=== PATIENT | female | born 1975 | race African-American/Black ===

== ENCOUNTER 2023-02-06 12:07 | Inpatient (IN) | payer OTHER ==
[2023-02-06 12:16] VITALS: BMI 32.9
[2023-02-06] MEDS ORDERED: morphine CARPU-JECT 4 MG/1 ML DISP.SYRIN IVPUSH ONE ×2 (13:16→15:29)
[2023-02-06] MEDS ORDERED: ACETAMINOPHEN 1000 MG/100 ML BAG IVPB ONE (13:16)
[2023-02-06] MEDS ORDERED: ONDANSETRON 4 MG/2 ML VIAL IVPUSH ONE (13:17)
[2023-02-06] MEDS ORDERED: levETIRAcetam 500 MG/5 ML INJECTION VIAL IVPB ONE ×3 (13:29→22:30)
[2023-02-06] MEDS ORDERED: SODIUM CHLORIDE 0.9% 500 ML INFUS.BAG IV ONE (13:33)
[2023-02-06] MEDS ORDERED: ONDANSETRON 4 MG/2 ML VIAL ONE (13:45)
[2023-02-06] MEDS ORDERED: morphine SULFATE 4 MG/ML VIAL ONE ×2 (13:45→15:44)
[2023-02-06] MEDS ORDERED: ACETAMINOPHEN INJECTION 100 ML IVPB ONE (13:45)
[2023-02-06 14:04] LABS: VENOUS BASE EXCESS 2.3 mmol/L (-2-2); VENOUS O2 SATURATION 87.5 % (70-80); VENOUS PCO2 45.2 mmHg (38-52); VENOUS PH 7.403 (7.310-7.410)
[2023-02-06 14:32] LABS: EOS % 1.5 % (0-4.5); HEMATOCRIT 38.9 % (32.4-45.2); HEMOGLOBIN 13.4 GM/dL (10.7-15.3); LYMPH % 19.2 % (8-40); MCH 31.4 pg (25.7-33.7); MCHC 34.5 g/dl (32.0-36.0); MEAN CELL VOLUME 90.9 fl (80-96); MEAN PLT VOLUME 8.7 fl (7.5-11.1); MONO % 6.1 % (3.8-10.2); NEUT % 72.2 % (42.8-82.8); PLATELET COUNT 325 10^3/uL (134-434); RBC 4.28 M/mm3 (3.60-5.2); RDW 14.6 % (11.6-15.6)
[2023-02-06 14:58] LABS: CHLORIDE 100 mmol/L (98-107); POTASSIUM 3.7 mmol/L (3.5-5.1); SODIUM 135 mmol/L (136-145)
[2023-02-06 15:01] LABS: ALBUMIN 3.7 g/dl (3.4-5.0); ANION GAP 5 MMOL/L (8-16); BLOOD UREA NITROGEN 6.1 mg/dL (7-18); CO2 29 mmol/L (21-32); GLUCOSE,RANDOM 103 mg/dL (74-106); LIPASE < 10 U/L (73-393)
[2023-02-06 15:04] LABS: CREATININE 0.8 mg/dL (0.55-1.3); SGOT/AST 9 U/L (15-37); SGPT/ALT 14 U/L (13-61)
[2023-02-06 15:05] LABS: ALK PHOS 113 U/L (45-117); BILIRUBIN,TOTAL 0.3 mg/dL (0.2-1); TOT PROT 8.1 g/dl (6.4-8.2)
[2023-02-06 15:07] LABS: N-TERMINAL BNP 9.4 pg/ml (5-125)
[2023-02-06] MEDS ORDERED: CEFTRIAXONE 1 GM in DEXTROSE 5%-WATER - 100 ML IVPB ONE (15:33)
[2023-02-06] MEDS ORDERED: CEFTRIAXONE 1 GM/50 ML BAG ONE (15:45)
[2023-02-06 15:55] LABS: EPI CELLS 6 /uL (0-25.1); HYALINE CASTS 0 /uL (0-3.1); URINE APPEARANCE CLEAR; URINE BACTERIA 2964 /uL (0-1359); URINE BILIRUBIN NEGATIVE (NEGATIVE); URINE COLOR YELLOW; URINE GLUCOSE (UA) NEGATIVE (NEGATIVE); URINE KETONE NEGATIVE (NEGATIVE); URINE LEUK ESTERASE 2+ (NEGATIVE); URINE NITRITE NEGATIVE (NEGATIVE); URINE PROTEIN NEGATIVE (NEGATIVE); URINE RBC 14 /uL (0-23.9); URINE UROBILINOGEN 0.2 mg/dL (0.2-1.0); URINE WBC 125 /uL (0-25.8)
[2023-02-06 18:33] LABS: LDH 139 U/L (84-246)
[2023-02-06] MEDS ORDERED: DOCUSATE SODIUM 100 MG CAPSULE (FP) PO PRN (19:57)
[2023-02-06] MEDS ORDERED: SODIUM CHLORIDE 500 ML IV STA (22:13)
[2023-02-06] MEDS: HYDROmorphone HCl 2 MG/ML VIAL IVPB PRN (22:55)
[2023-02-07] MEDS: SODIUM CHLORIDE 1,000 ML IV SCH (00:15)
[2023-02-07] MEDS ORDERED: lamoTRIgine 100 MG TABLET PO ONE ×2 (00:30→16:00)
[2023-02-07] MEDS ORDERED: GABAPENTIN 300 MG CAPSULE PO SCH (00:30)
[2023-02-07] MEDS: GABAPENTIN 300 MG CAPSULE PO SCH ×4 (00:57→21:26)
[2023-02-07] MEDS: ALPRAZolam 1 MG TABLET PO PRN ×2 (00:57→21:26)
[2023-02-07] MEDS ORDERED: TRIMETHOBENZAMIDE HCL 200MG/2ML INJ IM PRN (02:32)
[2023-02-07] MEDS: HYDROmorphone HCl 2 MG/ML VIAL IVPB PRN ×2 (03:18→08:42)
[2023-02-07] MEDS ORDERED: HYDROXYUREA 500 MG CAPSULE PO ONE ×2 (07:00→22:22)
[2023-02-07] MEDS: FERROUS SO4 325 MG TABLET (FP) PO SCH (09:56)
[2023-02-07] MEDS: TOPIRAMATE 100 MG TABLET PO SCH (09:56)
[2023-02-07] MEDS ORDERED: ALBUTEROL SO4 0.083% IH SOL 2.5 MG/3 ML VIAL.NEB. NEB PRN (10:29)
[2023-02-07 11:01] LABS: INR 1.11 (0.83-1.09); PROTHROMBIN TIME (PATIENT) 12.9 SEC (9.7-13.0)
[2023-02-07 11:04] LABS: ACTIVATED PTT 30.4 SECONDS (25.2-36.5); BASO % 0.5 % (0-2.0); HEMATOCRIT 32.4 % (32.4-45.2); HEMOGLOBIN 11.3 GM/dL (10.7-15.3); LYMPH % 29.2 % (8-40); MEAN CELL VOLUME 91.2 fl (80-96); MEAN PLT VOLUME 8.2 fl (7.5-11.1); MONO % 5.7 % (3.8-10.2); NEUT % 61.6 % (42.8-82.8); PLATELET COUNT 289 10^3/uL (134-434); RBC 3.55 M/mm3 (3.60-5.2); RDW 14.4 % (11.6-15.6); WHITE BLOOD COUNT 8.8 K/mm3 (4.0-10.0)
[2023-02-07 11:26] LABS: POTASSIUM 3.8 mmol/L (3.5-5.1)
[2023-02-07 11:34] LABS: BLOOD UREA NITROGEN 5.8 mg/dL (7-18); CALCIUM 8.2 mg/dL (8.5-10.1); MAGNESIUM 2.1 mg/dL (1.8-2.4)
[2023-02-07 11:37] LABS: CREATININE 0.7 mg/dL (0.55-1.3); PHOSPHOROUS 3.6 mg/dL (2.5-4.9)
[2023-02-07] MEDS: HYDROmorphone HCl 2 MG/ML VIAL IVPUSH PRN ×2 (12:19→17:33)
[2023-02-07] MEDS: CEFTRIAXONE 1 GM in DEXTROSE 5%-WATER - 50 ML IVPB SCH (12:19)
[2023-02-07] MEDS: POLYETHYLENE GLYCOL (HEALTHYLAX) 3350 17 GM PACKET PO SCH (12:20)
[2023-02-07] MEDS: methylPREDNISolone NA SUCC 40 MG/1 ML VIAL IVPUSH SCH ×2 (15:32→18:19)
[2023-02-07] MEDS: BUDESONIDE/FORMETEROL FUMARATE 160/4.5 mcg INHALER IH SCH ×2 (15:35→22:21)
[2023-02-07] MEDS: NICOTINE 14 MG/24 HOURS TOPICAL PATCH TD SCH (15:36)
[2023-02-07] MEDS: ALBUTEROL SO4 2.5/IPRATROPIUM 0.5 INH SOL 3 ML VIAL.NEB. NEB SCH ×2 (16:30→20:45)
[2023-02-07] MEDS: VANCOMYCIN PREMIX 1.5 GM 1,500 MG/300 ML BAG IVPB ONE ×2 (22:25→22:53)
[2023-02-08] MEDS: methylPREDNISolone NA SUCC 40 MG/1 ML VIAL IVPUSH SCH ×3 (01:11→17:51)
[2023-02-08] MEDS: HYDROmorphone HCl 2 MG/ML VIAL IVPUSH PRN ×4 (04:15→22:24)
[2023-02-08] MEDS: GABAPENTIN 300 MG CAPSULE PO SCH ×3 (05:21→21:42)
[2023-02-08] MEDS: SODIUM CHLORIDE 1,000 ML IV SCH ×3 (05:21→16:59)
[2023-02-08] MEDS: ALBUTEROL SO4 2.5/IPRATROPIUM 0.5 INH SOL 3 ML VIAL.NEB. NEB SCH ×4 (08:20→19:17)
[2023-02-08] MEDS: FERROUS SO4 325 MG TABLET (FP) PO SCH (09:09)
[2023-02-08] MEDS: TOPIRAMATE 100 MG TABLET PO SCH (09:10)
[2023-02-08] MEDS: CEFTRIAXONE 1 GM in DEXTROSE 5%-WATER - 50 ML IVPB SCH (09:10)
[2023-02-08] MEDS: NICOTINE 14 MG/24 HOURS TOPICAL PATCH TD SCH (09:10)
[2023-02-08] MEDS: BUDESONIDE/FORMETEROL FUMARATE 160/4.5 mcg INHALER IH SCH ×2 (09:11→21:42)
[2023-02-08] MEDS ORDERED: HYDROmorphone HCl 2 MG/ML VIAL IVPB ONE (09:45)
[2023-02-08] MEDS ORDERED: lamoTRIgine 100 MG TABLET PO SCH ×2 (10:00→19:18)
[2023-02-08] MEDS: POLYETHYLENE GLYCOL (HEALTHYLAX) 3350 17 GM PACKET PO SCH (10:26)
[2023-02-08] MEDS: levETIRAcetam 500 MG/5 ML INJECTION VIAL IVPB SCH ×2 (10:27→21:42)
[2023-02-08] MEDS ORDERED: HYDROXYUREA 500 MG CAPSULE PO SCH (10:30)
[2023-02-08] MEDS: LAMOTRIGINE 100 MG, LAMOTRIGINE 50 MG PO SCH (19:55)
[2023-02-08] MEDS: ALPRAZolam 1 MG TABLET PO PRN (21:41)
[2023-02-09] MEDS: SODIUM CHLORIDE 1,000 ML IV SCH ×2 (01:00→14:38)
[2023-02-09] MEDS: methylPREDNISolone NA SUCC 40 MG/1 ML VIAL IVPUSH SCH ×3 (02:22→17:16)
[2023-02-09] MEDS: GABAPENTIN 300 MG CAPSULE PO SCH ×3 (06:17→21:48)
[2023-02-09] MEDS: HYDROmorphone HCl 2 MG/ML VIAL IVPUSH PRN ×2 (06:18→12:31)
[2023-02-09] MEDS: LAMOTRIGINE 100 MG, LAMOTRIGINE 50 MG PO SCH ×2 (06:43→19:07)
[2023-02-09] MEDS: ALBUTEROL SO4 2.5/IPRATROPIUM 0.5 INH SOL 3 ML VIAL.NEB. NEB SCH ×4 (07:40→19:54)
[2023-02-09] MEDS: FERROUS SO4 325 MG TABLET (FP) PO SCH (11:11)
[2023-02-09] MEDS: POLYETHYLENE GLYCOL (HEALTHYLAX) 3350 17 GM PACKET PO SCH (11:11)
[2023-02-09] MEDS: TOPIRAMATE 100 MG TABLET PO SCH (11:12)
[2023-02-09] MEDS: levETIRAcetam 500 MG/5 ML INJECTION VIAL IVPB SCH ×2 (11:12→21:49)
[2023-02-09] MEDS: BUDESONIDE/FORMETEROL FUMARATE 160/4.5 mcg INHALER IH SCH ×2 (11:16→21:49)
[2023-02-09] MEDS: NICOTINE 14 MG/24 HOURS TOPICAL PATCH TD SCH ×2 (11:17→11:44)
[2023-02-09] MEDS: CEFTRIAXONE 1 GM in DEXTROSE 5%-WATER - 50 ML IVPB SCH (11:43)
[2023-02-09] MEDS: busPIRone HCL 5 MG TABLET PO SCH ×2 (14:07→21:49)
[2023-02-09] MEDS: HYDROmorphone HCl 2 MG/ML VIAL IVPB PRN (19:03)
[2023-02-09] MEDS: ALPRAZolam 1 MG TABLET PO PRN (21:49)
[2023-02-09] MEDS: QUEtiapine FUMARATE 25 MG TABLET PO SCH (21:49)
[2023-02-10] MEDS: methylPREDNISolone NA SUCC 40 MG/1 ML VIAL IVPUSH SCH ×2 (01:31→09:24)
[2023-02-10] MEDS: HYDROmorphone HCl 2 MG/ML VIAL IVPB PRN ×2 (01:31→08:26)
[2023-02-10] MEDS: SODIUM CHLORIDE 1,000 ML IV SCH ×2 (03:32→22:07)
[2023-02-10] MEDS: GABAPENTIN 300 MG CAPSULE PO SCH ×3 (05:35→21:48)
[2023-02-10] MEDS: LAMOTRIGINE 100 MG, LAMOTRIGINE 50 MG PO SCH ×2 (06:29→18:17)
[2023-02-10] MEDS: ALBUTEROL SO4 2.5/IPRATROPIUM 0.5 INH SOL 3 ML VIAL.NEB. NEB SCH ×4 (07:40→19:42)
[2023-02-10 09:14] LABS: HEMATOCRIT 35.6 % (32.4-45.2); HEMOGLOBIN 11.8 GM/dL (10.7-15.3); MCHC 33.2 g/dl (32.0-36.0); MEAN CELL VOLUME 93.4 fl (80-96); MEAN PLT VOLUME 8.6 fl (7.5-11.1); PLATELET COUNT 337 10^3/uL (134-434); RBC 3.81 M/mm3 (3.60-5.2); RDW 14.6 % (11.6-15.6); WHITE BLOOD COUNT 11.6 K/mm3 (4.0-10.0)
[2023-02-10] MEDS: TOPIRAMATE 100 MG TABLET PO SCH (09:24)
[2023-02-10] MEDS: BUDESONIDE/FORMETEROL FUMARATE 160/4.5 mcg INHALER IH SCH ×2 (09:25→21:49)
[2023-02-10] MEDS: NICOTINE 14 MG/24 HOURS TOPICAL PATCH TD SCH (09:26)
[2023-02-10] MEDS: busPIRone HCL 5 MG TABLET PO SCH ×2 (09:26→21:47)
[2023-02-10] MEDS: FERROUS SO4 325 MG TABLET (FP) PO SCH (09:26)
[2023-02-10] MEDS: CEFTRIAXONE 1 GM in DEXTROSE 5%-WATER - 50 ML IVPB SCH (09:26)
[2023-02-10] MEDS: levETIRAcetam 500 MG/5 ML INJECTION VIAL IVPB SCH ×2 (09:27→21:47)
[2023-02-10] MEDS: POLYETHYLENE GLYCOL (HEALTHYLAX) 3350 17 GM PACKET PO SCH (09:28)
[2023-02-10 09:32] LABS: POTASSIUM 4.2 mmol/L (3.5-5.1)
[2023-02-10 09:37] LABS: ALBUMIN 3.7 g/dl (3.4-5.0); CALCIUM 9.3 mg/dL (8.5-10.1)
[2023-02-10 09:38] LABS: BLOOD UREA NITROGEN 11.7 mg/dL (7-18)
[2023-02-10 09:42] LABS: BILIRUBIN,TOTAL 0.3 mg/dL (0.2-1); TOT PROT 7.8 g/dl (6.4-8.2)
[2023-02-10] MEDS: traMADol HCL 50 MG TABLET PO PRN ×2 (14:46→21:48)
[2023-02-10 15:38] VITALS: RESP 18
[2023-02-10] MEDS: QUEtiapine FUMARATE 25 MG TABLET PO SCH (21:48)
[2023-02-10] MEDS: ALPRAZolam 1 MG TABLET PO PRN (21:48)
[2023-02-11] MEDS: SODIUM CHLORIDE 1,000 ML IV SCH ×2 (03:05→06:52)
[2023-02-11] MEDS: traMADol HCL 50 MG TABLET PO PRN ×2 (05:30→09:57)
[2023-02-11] MEDS: GABAPENTIN 300 MG CAPSULE PO SCH (05:30)
[2023-02-11 05:50] VITALS: TEMP 97.9
[2023-02-11] MEDS: LAMOTRIGINE 100 MG, LAMOTRIGINE 50 MG PO SCH (06:49)
[2023-02-11] MEDS: ALBUTEROL SO4 2.5/IPRATROPIUM 0.5 INH SOL 3 ML VIAL.NEB. NEB SCH ×2 (08:25→11:35)
[2023-02-11] MEDS: TOPIRAMATE 100 MG TABLET PO SCH (09:57)
[2023-02-11] MEDS: busPIRone HCL 5 MG TABLET PO SCH (09:58)
[2023-02-11] MEDS: POLYETHYLENE GLYCOL (HEALTHYLAX) 3350 17 GM PACKET PO SCH (09:58)
[2023-02-11] MEDS: FERROUS SO4 325 MG TABLET (FP) PO SCH (09:58)
[2023-02-11] MEDS: levETIRAcetam 500 MG/5 ML INJECTION VIAL IVPB SCH (09:59)
[2023-02-11] MEDS: NICOTINE 14 MG/24 HOURS TOPICAL PATCH TD SCH (09:59)
[2023-02-11] MEDS: BUDESONIDE/FORMETEROL FUMARATE 160/4.5 mcg INHALER IH SCH (09:59)
[2023-02-11] MEDS ORDERED: predniSONE 20 MG TABLET (UD) PO SCH (10:00)
[2023-02-11] MEDS ORDERED: CEFPODOXIME PROXETIL 100 MG TABLET PO SCH (10:00)
[2023-02-11 10:08] VITALS: BP 119/82; PULSE 108
== END 2023-02-11 14:03 | disposition home or self-care (01) | DRG 662 ==
LOC: JER 12:07 → JERBED 19:17 → J8W 21:29 → OBSVTOIN 02-08 15:59
PROVIDERS: ADMIT Internal Medicine; ATTEND Family Medicine
DX: D57.00 Hb-SS disease with crisis, unspecified (principal); N39.0 Urinary tract infection, site not specified; R11.2 Nausea with vomiting, unspecified; J45.901 Unspecified asthma with (acute) exacerbation; G43.909 Migraine, unspecified, not intractable, without status migrainosus; G47.00 Insomnia, unspecified; G89.29 Other chronic pain; J06.9 Acute upper respiratory infection, unspecified; F17.200 Nicotine dependence, unspecified, uncomplicated; E87.1 Hypo-osmolality and hyponatremia; R50.9 Fever, unspecified; G25.81 Restless legs syndrome; F41.8 Other specified anxiety disorders
CPT/HCPCS: 0241U-QW; 36415; 70551-TC; 71045-TC-FY; 76705-TC; 80048; 80053; 81003; 82803; 83605; 83615; 83690; 83735; 83880; 84100; 84484; 84702; 85025; 85027; 85610; 85730; 86850; 86900; 86901; 87040; 87086; 87186; 93005; 93010; 94640; 97116-GP; 97161-GP; 99285-25; G0378; J8999

== ENCOUNTER 2023-03-07 11:22 | Inpatient (IN) | payer OTHER ==
[2023-03-07] MEDS ORDERED: ONDANSETRON 4 MG/2 ML VIAL IVPUSH ONE (12:17)
[2023-03-07] MEDS ORDERED: LACTATED RINGERS SOLUTION 1000 ML INFUS.BAG IV ONE (12:17)
[2023-03-07] MEDS ORDERED: MAG HYDROX/AL HYDROX/SIMETH 30 ML UNIT-DOSE CUP PO ONE (12:17)
[2023-03-07] MEDS ORDERED: FAMOTIDINE 20 MG/50 ML IVPB 20 MG/50 ML MG IVPB ONE (12:17)
[2023-03-07] MEDS ORDERED: SUCRALFATE 1 GM TABLET (FP) PO ONE (12:19)
[2023-03-07] MEDS ORDERED: MAG HYDROX/AL HYDROX/SIMETH 30 ML UNIT-DOSE CUP ONE (13:19)
[2023-03-07] MEDS ORDERED: ONDANSETRON 4 MG/2 ML VIAL ONE ×2 (13:19→13:56)
[2023-03-07] MEDS ORDERED: FAMOTIDINE 10 MG/ML VIAL IVPB ONE (13:20)
[2023-03-07 13:21] LABS: EPI CELLS >36 /uL (0-25.1); HYALINE CASTS 1 /uL (0-3.1); PH,URINE 5.5 (5.0-8.0); URINE APPEARANCE CLOUDY; URINE BACTERIA 172 /uL (0-1359); URINE BILIRUBIN NEGATIVE (NEGATIVE); URINE COLOR YELLOW; URINE GLUCOSE (UA) NEGATIVE (NEGATIVE); URINE KETONE TRACE (NEGATIVE); URINE LEUK ESTERASE 2+ (NEGATIVE); URINE NITRITE NEGATIVE (NEGATIVE); URINE PROTEIN NEGATIVE (NEGATIVE); URINE UROBILINOGEN 0.2 mg/dL (0.2-1.0); URINE WBC 97 /uL (0-25.8)
[2023-03-07] MEDS ORDERED: SUCRALFATE 1 GM TABLET (FP) ONE (13:22)
[2023-03-07 13:31] LABS: POTASSIUM 4.4 mmol/L (3.5-5.1)
[2023-03-07 13:33] LABS: CALCIUM 9.7 mg/dL (8.5-10.1)
[2023-03-07 13:35] LABS: ALBUMIN 3.9 g/dl (3.4-5.0); BLOOD UREA NITROGEN 11.3 mg/dL (7-18)
[2023-03-07 13:37] LABS: CREATININE 0.8 mg/dL (0.55-1.3)
[2023-03-07 13:39] LABS: BILIRUBIN,TOTAL 0.5 mg/dL (0.2-1); TOT PROT 8.4 g/dl (6.4-8.2)
[2023-03-07] MEDS ORDERED: ACETAMINOPHEN 1000 MG/100 ML BAG IVPB ONE (14:09)
[2023-03-07] MEDS ORDERED: ACETAMINOPHEN INJECTION 100 ML IVPB ONE (14:12)
[2023-03-07 14:53] LABS: BASO % 0.7 % (0-2.0); HEMATOCRIT 39.5 % (32.4-45.2); HEMOGLOBIN 13.1 GM/dL (10.7-15.3); LYMPH % 20.9 % (8-40); MCH 30.9 pg (25.7-33.7); MCHC 33.2 g/dl (32.0-36.0); MEAN CELL VOLUME 93.1 fl (80-96); MEAN PLT VOLUME 8.5 fl (7.5-11.1); MONO % 6.7 % (3.8-10.2); NEUT % 70.7 % (42.8-82.8); PLATELET COUNT 411 10^3/uL (134-434); RBC 4.24 M/mm3 (3.60-5.2); RDW 15.7 % (11.6-15.6); RETICULOCYTES 1.85 % (0.5-1.5); WHITE BLOOD COUNT 9.5 K/mm3 (4.0-10.0)
[2023-03-07] MEDS ORDERED: CEFTRIAXONE 1 GM/50 ML BAG ONE (14:53)
[2023-03-07] MEDS ORDERED: morphine SULFATE 4 MG/ML VIAL IVPUSH ONE (15:17)
[2023-03-07] MEDS ORDERED: morphine SULFATE 4 MG/ML VIAL ONE ×2 (15:25→18:19)
[2023-03-07] MEDS ORDERED: METOCLOPRAMIDE HCL INJECTION 10 MG/2 ML VIAL IVPB ONE (17:07)
[2023-03-07] MEDS ORDERED: METOCLOPRAMIDE HCL INJECTION 10 MG/2 ML VIAL ONE (17:50)
[2023-03-07] MEDS ORDERED: morphine CARPU-JECT 4 MG/1 ML DISP.SYRIN IVPUSH ONE (18:05)
[2023-03-07] MEDS ORDERED: ACETAMINOPHEN 1000 MG/100 ML BAG IVPB PRN ×2 (20:38→22:47)
[2023-03-07] MEDS ORDERED: SODIUM CHLORIDE 1,000 ML IV SCH (20:45)
[2023-03-07] MEDS ORDERED: QUEtiapine FUMARATE 25 MG TABLET ONE (21:15)
[2023-03-07] MEDS ORDERED: levETIRAcetam 500 MG TABLET (FP) PO ONE (21:15)
[2023-03-07] MEDS ORDERED: HEPARIN NA (PORCINE) 5,000 UNITS/ML 1ML VIAL ONE (21:16)
[2023-03-07] MEDS: HEPARIN NA (PORCINE) 5,000 UNITS/ML 1ML VIAL SQ SCH (21:33)
[2023-03-07] MEDS: QUEtiapine FUMARATE 25 MG TABLET PO SCH (21:33)
[2023-03-07] MEDS: levETIRAcetam 500 MG TABLET (FP) PO SCH (22:02)
[2023-03-07] MEDS ORDERED: lamoTRIgine 25 MG TABLET PO SCH (22:45)
[2023-03-07] MEDS: DEXTROSE 5%-0.45% SALINE 1,000 ML IV SCH (23:08)
[2023-03-07] MEDS ORDERED: levETIRAcetam 500 MG/5 ML INJECTION VIAL IVPB ONE ×2 (23:38→23:39)
[2023-03-08] MEDS ORDERED: morphine SULFATE 4 MG/ML VIAL ONE ×4 (06:25→17:26)
[2023-03-08 08:59] LABS: BASO % 1.8 % (0-2.0); EOS % 2.9 % (0-4.5); HEMATOCRIT 34.5 % (32.4-45.2); HEMOGLOBIN 11.6 GM/dL (10.7-15.3); MCH 30.9 pg (25.7-33.7); MCHC 33.5 g/dl (32.0-36.0); MEAN CELL VOLUME 92.2 fl (80-96); MEAN PLT VOLUME 8.9 fl (7.5-11.1); NEUT % 54.3 % (42.8-82.8); PLATELET COUNT 336 10^3/uL (134-434); RBC 3.74 M/mm3 (3.60-5.2); RDW 15.6 % (11.6-15.6); WHITE BLOOD COUNT 6.9 K/mm3 (4.0-10.0)
[2023-03-08 09:41] LABS: POTASSIUM 3.5 mmol/L (3.5-5.1)
[2023-03-08 09:50] LABS: BLOOD UREA NITROGEN 9.8 mg/dL (7-18); CALCIUM 8.6 mg/dL (8.5-10.1)
[2023-03-08 09:51] LABS: ALBUMIN 3.3 g/dl (3.4-5.0)
[2023-03-08 09:54] LABS: CREATININE 0.7 mg/dL (0.55-1.3)
[2023-03-08 09:56] LABS: BILIRUBIN,TOTAL 0.5 mg/dL (0.2-1); TOT PROT 6.6 g/dl (6.4-8.2)
[2023-03-08] MEDS ORDERED: CEFTRIAXONE 1 GM in DEXTROSE 5%-WATER - 50 ML IVPB SCH (10:00)
[2023-03-08] MEDS ORDERED: HYDROXYUREA 500 MG CAPSULE PO SCH (10:00)
[2023-03-08] MEDS ORDERED: PATIENT'S OWN MEDICATION (NON-FORMULARY) (Lamotrigine [Lamictal] 150 MG Tablet) PO SCH (10:30)
[2023-03-08] MEDS ORDERED: morphine CARPU-JECT 4 MG/1 ML DISP.SYRIN IVPUSH PRN (10:31)
[2023-03-08] MEDS ORDERED: ALPRAZolam 1 MG TABLET ONE (10:31)
[2023-03-08] MEDS ORDERED: lamoTRIgine 100 MG TABLET ONE (10:32)
[2023-03-08] MEDS ORDERED: lamoTRIgine 25 MG TABLET ONE (10:32)
[2023-03-08] MEDS ORDERED: PANTOPRAZOLE 40 MG TABLET PO ONE (10:33)
[2023-03-08] MEDS ORDERED: METOCLOPRAMIDE HCL INJECTION 10 MG/2 ML VIAL ONE (10:33)
[2023-03-08] MEDS: LAMOTRIGINE 100 MG, LAMOTRIGINE 50 MG PO SCH (11:07)
[2023-03-08] MEDS: HEPARIN NA (PORCINE) 5,000 UNITS/ML 1ML VIAL SQ SCH ×2 (11:07→21:38)
[2023-03-08] MEDS: PANTOPRAZOLE 40 MG TABLET PO SCH (11:07)
[2023-03-08] MEDS: ALPRAZolam 1 MG TABLET PO SCH (11:08)
[2023-03-08] MEDS ORDERED: CEFTRIAXONE 1 GM/50 ML BAG ONE (11:12)
[2023-03-08] MEDS: FERROUS SO4 325 MG TABLET (FP) PO SCH (11:12)
[2023-03-08] MEDS: BUDESONIDE/FORMETEROL FUMARATE 160/4.5 mcg INHALER IH SCH ×2 (11:27→22:54)
[2023-03-08] MEDS: METOCLOPRAMIDE HCL INJECTION 10 MG/2 ML VIAL IVPUSH PRN (13:09)
[2023-03-08] MEDS: levETIRAcetam 500 MG TABLET (FP) PO SCH (13:10)
[2023-03-08] MEDS: morphine SULFATE 4 MG/ML VIAL IVPUSH PRN ×2 (14:07→17:35)
[2023-03-08] MEDS: GABAPENTIN 300 MG CAPSULE PO SCH ×2 (14:08→21:37)
[2023-03-08 18:09] VITALS: BMI 34.5
[2023-03-08] MEDS: HYDROmorphone HCl 2 MG/ML VIAL IVPB PRN (20:53)
[2023-03-08] MEDS: FOLIC ACID 1 MG TABLET (FP) PO SCH (21:38)
[2023-03-08] MEDS: QUEtiapine FUMARATE 25 MG TABLET PO SCH (21:38)
[2023-03-08] MEDS: busPIRone HCL 5 MG TABLET PO SCH (21:38)
[2023-03-08] MEDS: levETIRAcetam 500 MG/5 ML INJECTION VIAL IVPB SCH (21:39)
[2023-03-09] MEDS: DEXTROSE 5%-0.45% SALINE 1,000 ML IV SCH ×3 (01:29→22:09)
[2023-03-09] MEDS: HYDROmorphone HCl 2 MG/ML VIAL IVPB PRN ×3 (04:56→23:18)
[2023-03-09] MEDS: GABAPENTIN 300 MG CAPSULE PO SCH ×3 (05:55→21:25)
[2023-03-09] MEDS: METOCLOPRAMIDE HCL INJECTION 10 MG/2 ML VIAL IVPUSH PRN ×2 (09:43→18:03)
[2023-03-09] MEDS: levETIRAcetam 500 MG/5 ML INJECTION VIAL IVPB SCH ×2 (09:55→21:25)
[2023-03-09] MEDS: FERROUS SO4 325 MG TABLET (FP) PO SCH (10:00)
[2023-03-09] MEDS: FOLIC ACID 1 MG TABLET (FP) PO SCH (10:00)
[2023-03-09] MEDS: PANTOPRAZOLE 40 MG TABLET PO SCH (10:00)
[2023-03-09] MEDS: LAMOTRIGINE 100 MG, LAMOTRIGINE 50 MG PO SCH (10:00)
[2023-03-09] MEDS: busPIRone HCL 5 MG TABLET PO SCH ×2 (10:00→21:25)
[2023-03-09] MEDS: ALPRAZolam 1 MG TABLET PO SCH (10:00)
[2023-03-09] MEDS: BUDESONIDE/FORMETEROL FUMARATE 160/4.5 mcg INHALER IH SCH ×2 (10:01→21:26)
[2023-03-09] MEDS: HEPARIN NA (PORCINE) 5,000 UNITS/ML 1ML VIAL SQ SCH ×2 (10:01→21:26)
[2023-03-09 10:03] LABS: EOS % 2.8 % (0-4.5); HEMATOCRIT 34.7 % (32.4-45.2); HEMOGLOBIN 11.4 GM/dL (10.7-15.3); LYMPH % 34.4 % (8-40); MCH 30.7 pg (25.7-33.7); MCHC 32.8 g/dl (32.0-36.0); MEAN CELL VOLUME 93.4 fl (80-96); MEAN PLT VOLUME 8.6 fl (7.5-11.1); MONO % 8.9 % (3.8-10.2); NEUT % 52.9 % (42.8-82.8); PLATELET COUNT 329 10^3/uL (134-434); RBC 3.71 M/mm3 (3.60-5.2); RDW 15.6 % (11.6-15.6); RETICULOCYTES 1.43 % (0.5-1.5); WHITE BLOOD COUNT 7.7 K/mm3 (4.0-10.0)
[2023-03-09 10:16] LABS: POTASSIUM 3.5 mmol/L (3.5-5.1)
[2023-03-09 10:28] LABS: ALBUMIN 3.4 g/dl (3.4-5.0); BLOOD UREA NITROGEN 6.1 mg/dL (7-18)
[2023-03-09 10:31] LABS: CREATININE 0.7 mg/dL (0.55-1.3)
[2023-03-09 10:33] LABS: BILIRUBIN,TOTAL 0.5 mg/dL (0.2-1); TOT PROT 6.7 g/dl (6.4-8.2)
[2023-03-09] MEDS: morphine SULFATE 4 MG/ML VIAL IVPUSH PRN ×2 (11:33→18:03)
[2023-03-09] MEDS: QUEtiapine FUMARATE 25 MG TABLET PO SCH (21:25)
[2023-03-10] MEDS: morphine SULFATE 4 MG/ML VIAL IVPUSH PRN ×2 (03:14→14:39)
[2023-03-10] MEDS: GABAPENTIN 300 MG CAPSULE PO SCH ×3 (05:50→21:28)
[2023-03-10 06:14] VITALS: RESP 18
[2023-03-10] MEDS: METOCLOPRAMIDE HCL INJECTION 10 MG/2 ML VIAL IVPUSH PRN (07:45)
[2023-03-10] MEDS: HYDROmorphone HCl 2 MG/ML VIAL IVPB PRN ×2 (09:20→18:41)
[2023-03-10 09:24] LABS: BASO % 1.1 % (0-2.0); EOS % 1.7 % (0-4.5); HEMATOCRIT 34.1 % (32.4-45.2); LYMPH % 19.1 % (8-40); MCH 30.1 pg (25.7-33.7); MCHC 32.3 g/dl (32.0-36.0); MEAN CELL VOLUME 93.2 fl (80-96); MEAN PLT VOLUME 8.3 fl (7.5-11.1); MONO % 6.6 % (3.8-10.2); NEUT % 71.5 % (42.8-82.8); PLATELET COUNT 325 10^3/uL (134-434); RBC 3.66 M/mm3 (3.60-5.2); RDW 15.8 % (11.6-15.6)
[2023-03-10] MEDS: levETIRAcetam 500 MG/5 ML INJECTION VIAL IVPB SCH ×2 (09:34→21:30)
[2023-03-10] MEDS: ALPRAZolam 1 MG TABLET PO SCH (09:34)
[2023-03-10] MEDS: LAMOTRIGINE 100 MG, LAMOTRIGINE 50 MG PO SCH (09:35)
[2023-03-10] MEDS: FERROUS SO4 325 MG TABLET (FP) PO SCH (09:35)
[2023-03-10] MEDS: PANTOPRAZOLE 40 MG TABLET PO SCH (09:35)
[2023-03-10] MEDS: busPIRone HCL 5 MG TABLET PO SCH ×2 (09:35→21:30)
[2023-03-10] MEDS: FOLIC ACID 1 MG TABLET (FP) PO SCH (09:35)
[2023-03-10] MEDS: BUDESONIDE/FORMETEROL FUMARATE 160/4.5 mcg INHALER IH SCH ×2 (09:38→21:34)
[2023-03-10 09:41] LABS: POTASSIUM 3.3 mmol/L (3.5-5.1)
[2023-03-10 09:44] LABS: BLOOD UREA NITROGEN 4.3 mg/dL (7-18); MAGNESIUM 2.1 mg/dL (1.8-2.4)
[2023-03-10 09:47] LABS: CREATININE 0.9 mg/dL (0.55-1.3); PHOSPHOROUS 2.2 mg/dL (2.5-4.9)
[2023-03-10 09:48] LABS: BILIRUBIN,TOTAL 0.4 mg/dL (0.2-1); TOT PROT 6.2 g/dl (6.4-8.2)
[2023-03-10] MEDS: HEPARIN NA (PORCINE) 5,000 UNITS/ML 1ML VIAL SQ SCH ×2 (09:56→21:29)
[2023-03-10] MEDS ORDERED: POTASSIUM CHLORIDE TABS 20 MEQ TABLET.ER (FP) PO ONE (18:00)
[2023-03-10] MEDS: QUEtiapine FUMARATE 25 MG TABLET PO SCH (21:30)
[2023-03-10] MEDS: DEXTROSE 5%-0.45% SALINE 1,000 ML IV SCH (22:40)
[2023-03-11] MEDS: HYDROmorphone HCl 2 MG/ML VIAL IVPB PRN ×2 (02:09→09:34)
[2023-03-11] MEDS: morphine SULFATE 4 MG/ML VIAL IVPUSH PRN ×2 (05:38→12:38)
[2023-03-11] MEDS: GABAPENTIN 300 MG CAPSULE PO SCH ×3 (05:44→21:28)
[2023-03-11] MEDS: PANTOPRAZOLE 40 MG TABLET PO SCH (10:26)
[2023-03-11] MEDS: FOLIC ACID 1 MG TABLET (FP) PO SCH (10:26)
[2023-03-11] MEDS: busPIRone HCL 5 MG TABLET PO SCH ×2 (10:26→21:28)
[2023-03-11] MEDS: ALPRAZolam 1 MG TABLET PO SCH (10:26)
[2023-03-11] MEDS: FERROUS SO4 325 MG TABLET (FP) PO SCH (10:26)
[2023-03-11] MEDS: levETIRAcetam 500 MG/5 ML INJECTION VIAL IVPB SCH (10:26)
[2023-03-11] MEDS: METOCLOPRAMIDE HCL INJECTION 10 MG/2 ML VIAL IVPUSH PRN (10:28)
[2023-03-11] MEDS: HEPARIN NA (PORCINE) 5,000 UNITS/ML 1ML VIAL SQ SCH ×2 (10:28→21:28)
[2023-03-11] MEDS: BUDESONIDE/FORMETEROL FUMARATE 160/4.5 mcg INHALER IH SCH ×2 (10:31→21:29)
[2023-03-11] MEDS: LAMOTRIGINE 100 MG, LAMOTRIGINE 50 MG PO SCH (10:31)
[2023-03-11 10:39] LABS: EOS % 2.4 % (0-4.5); HEMATOCRIT 32.7 % (32.4-45.2); LYMPH % 31.4 % (8-40); MCH 30.6 pg (25.7-33.7); MCHC 33.5 g/dl (32.0-36.0); MEAN CELL VOLUME 91.4 fl (80-96); MEAN PLT VOLUME 8.6 fl (7.5-11.1); MONO % 7.3 % (3.8-10.2); NEUT % 57.9 % (42.8-82.8); PLATELET COUNT 286 10^3/uL (134-434); RBC 3.58 M/mm3 (3.60-5.2); RDW 15.8 % (11.6-15.6); WHITE BLOOD COUNT 6.9 K/mm3 (4.0-10.0)
[2023-03-11 10:46] LABS: POTASSIUM 3.9 mmol/L (3.5-5.1)
[2023-03-11 10:48] LABS: CALCIUM 8.7 mg/dL (8.5-10.1)
[2023-03-11 10:49] LABS: ALBUMIN 3.2 g/dl (3.4-5.0); BLOOD UREA NITROGEN 6.2 mg/dL (7-18)
[2023-03-11 10:52] LABS: CREATININE 0.7 mg/dL (0.55-1.3)
[2023-03-11 10:53] LABS: BILIRUBIN,TOTAL 0.5 mg/dL (0.2-1); TOT PROT 6.5 g/dl (6.4-8.2)
[2023-03-11] MEDS ORDERED: oxyCODONE HCL 5 MG TABLET PO PRN ×2 (15:22→15:45)
[2023-03-11] MEDS ORDERED: HYDROmorphone HCL 2 MG TABLET PO PRN ×3 (18:00)
[2023-03-11] MEDS: QUEtiapine FUMARATE 25 MG TABLET PO SCH (21:28)
[2023-03-11] MEDS: DEXTROSE 5%-0.45% SALINE 1,000 ML IV SCH (22:45)
[2023-03-12] MEDS: levETIRAcetam 500 MG/5 ML INJECTION VIAL IVPB SCH (00:15)
[2023-03-12] MEDS: levETIRAcetam 500 MG TABLET (FP) PO SCH ×3 (01:30→09:43)
[2023-03-12] MEDS: GABAPENTIN 300 MG CAPSULE PO SCH ×2 (05:00→13:49)
[2023-03-12 09:01] LABS: HEMATOCRIT 33.2 % (32.4-45.2); HEMOGLOBIN 10.9 GM/dL (10.7-15.3); MCH 30.6 pg (25.7-33.7); MCHC 32.8 g/dl (32.0-36.0); MEAN CELL VOLUME 93.4 fl (80-96); MEAN PLT VOLUME 8.6 fl (7.5-11.1); PLATELET COUNT 303 10^3/uL (134-434); RBC 3.56 M/mm3 (3.60-5.2); RDW 15.7 % (11.6-15.6); WHITE BLOOD COUNT 7.1 K/mm3 (4.0-10.0)
[2023-03-12 09:25] LABS: POTASSIUM 3.7 mmol/L (3.5-5.1)
[2023-03-12 09:30] LABS: CALCIUM 8.8 mg/dL (8.5-10.1)
[2023-03-12 09:31] LABS: ALBUMIN 3.4 g/dl (3.4-5.0)
[2023-03-12 09:34] LABS: CREATININE 0.8 mg/dL (0.55-1.3)
[2023-03-12 09:35] LABS: BILIRUBIN,TOTAL 0.6 mg/dL (0.2-1); TOT PROT 6.6 g/dl (6.4-8.2)
[2023-03-12] MEDS: HEPARIN NA (PORCINE) 5,000 UNITS/ML 1ML VIAL SQ SCH (09:43)
[2023-03-12] MEDS: ALPRAZolam 1 MG TABLET PO SCH (09:43)
[2023-03-12] MEDS: busPIRone HCL 5 MG TABLET PO SCH (09:43)
[2023-03-12] MEDS: FERROUS SO4 325 MG TABLET (FP) PO SCH (09:43)
[2023-03-12] MEDS: FOLIC ACID 1 MG TABLET (FP) PO SCH (09:43)
[2023-03-12] MEDS: PANTOPRAZOLE 40 MG TABLET PO SCH (09:43)
[2023-03-12] MEDS: LAMOTRIGINE 100 MG, LAMOTRIGINE 50 MG PO SCH (09:43)
[2023-03-12] MEDS: BUDESONIDE/FORMETEROL FUMARATE 160/4.5 mcg INHALER IH SCH (09:52)
[2023-03-12 14:07] VITALS: BP 130/91; PULSE 77; TEMP 98.1
[2023-03-14 16:08] LABS: HGB SOLUBILITY Positive (Negative)
== END 2023-03-12 15:45 | disposition home or self-care (01) | DRG 662 ==
LOC: JER 11:22 → JERBED 18:00 → OBSVTOIN 18:00 → J6S 03-08 17:54
PROVIDERS: ADMIT Internal Medicine; ATTEND Internal Medicine
DX: D57.00 Hb-SS disease with crisis, unspecified (principal); R63.0 Anorexia; G40.909 Epilepsy, unspecified, not intractable, without status epilepticus; R10.9 Unspecified abdominal pain; R25.2 Cramp and spasm
CPT/HCPCS: 0241U-QW; 36415; 71046-TC-FY; 74181-TC; 76705-TC; 80053; 81003; 82728; 83021; 83540; 83550; 83690; 83735; 84100; 84484; 84703; 85025; 85027; 85045; 85660; 86850; 86900; 86901; 87086; 93005; 93010; 99285-25; J1644